=== PATIENT | male | born 1985 | race Caucasian/White ===

== ENCOUNTER → 2020-05-11 | Outpatient (CLI) | payer OTHER | LOC: M.RAD 12:59 | PROVIDERS: ATTEND Clinical Nurse Specialist Adult Health | DX: N63.20 Unspecified lump in the left breast, unspecified quadrant (principal); N64.89 Other specified disorders of breast ==

== ENCOUNTER → 2020-11-10 | Outpatient (CLI) | payer OTHER | LOC: M.RAD 14:20 | DX: N62 Hypertrophy of breast (principal); N64.9 Disorder of breast, unspecified; R16.0 Hepatomegaly, not elsewhere classified ==